=== PATIENT | male | born 2000 | race Caucasian/White ===

== ENCOUNTER 2021-06-12 13:32 | Day surgery (SDC) | payer BC ==
[2021-06-12] MEDS ORDERED: Chlorhexidine Gluconate 15 ML UDCUP SSP PRN (14:04)
[2021-06-12] MEDS ORDERED: Dexamethasone 4 mg/ml Vial ONE (14:14)
[2021-06-12] MEDS ORDERED: Dexamethasone 4 mg/ml Vial SLOW IVP SCH (14:15)
[2021-06-12] MEDS ORDERED: Ketorolac Tromethamine 30 MG/ML VIAL ONE (15:10)
[2021-06-12] MEDS ORDERED: Chlorhexidine Gluconate 15 ML UDCUP SSP ONE (15:55)
[2021-06-12] MEDS ORDERED: Lidocaine 1% w/Epinephrine 1:100K 20 ML VIAL ONE (15:55)
[2021-06-12] MEDS ORDERED: Bacitracin Zinc Ointment 30 gm TUBE ONE (15:55)
[2021-06-12] MEDS ORDERED: Fentanyl 250 MCG/5 ML VIAL ONE (16:36)
[2021-06-12] MEDS ORDERED: AFRIN NASAL MIST 15 ML BOT ONE (16:37)
[2021-06-12] MEDS ORDERED: Lidocaine 2% Jelly 5 ML TUBE ONE (16:37)
[2021-06-12] MEDS ORDERED: Rocuronium Bromide 10 MG/ML (10ML VIAL) ONE (17:18)
[2021-06-12] MEDS ORDERED: Dexamethasone 20 MG/5 ML VIAL ONE (17:18)
[2021-06-12] MEDS ORDERED: Lidocaine 1% PF 5 ML VIAL ONE (17:18)
[2021-06-12] MEDS ORDERED: PROPOFOL 200 MG/20 ML VIAL ONE (17:18)
[2021-06-12] MEDS ORDERED: Ondansetron PF 4 MG/2 ML Vial ONE (17:18)
[2021-06-12] MEDS ORDERED: Meperidine HCl/PF 25 MG/ML VIAL ONE (19:38)
[2021-06-12] MEDS ORDERED: Hydrocodone-Acetamin 15 ML UDCUP ONE (20:05)
[2021-06-12] MEDS ORDERED: Promethazine HCl 25 MG/ML VIAL ONE (20:06)
== END 2021-06-12 21:30 | disposition home or self-care (01) ==
LOC: SDC 13:32
PROVIDERS: ATTEND Oral & Maxillofacial Surgery
PROC: 0NST04Z Reposition Right Mandible with Internal Fixation Device, Open Approach (ICD-10-PCS; principal; 2021-06-12)
PROC: 0NSV04Z Reposition Left Mandible with Internal Fixation Device, Open Approach (ICD-10-PCS; principal; 2021-06-12)
DX: S02.66XA Fracture of symphysis of mandible, initial encounter for closed fracture (principal); S02.622A Fracture of subcondylar process of left mandible, initial encounter for closed fracture; V19.9XXA Pedal cyclist (driver) (passenger) injured in unspecified traffic accident, initial encounter
CPT/HCPCS: C1713; J0690; J1100; J1885; J2175; J2405; J2550; J2704; J3010